=== PATIENT | female | born 2000 | race Caucasian/White ===

== ENCOUNTER 2020-11-19 09:40 | Emergency (ER) | payer OTHER, SELFPAY ==
--- NOTE | ~2020-11-19 | XR_ITS ---
EXAMINATION: XR chest 2V DATE: 11/19/2020 10:12 INDICATION: One week of cough TECHNIQUE: PA and lateral views of the chest were obtained. COMPARISON: None FINDINGS: The lungs are clear with no focal airspace opacities, pulmonary edema, pleural effusion or pneumothor ax. The cardiomediastinal silhouette is normal. 8 degrees lower thoracic levocurvature. IMPRESSION: 1. No acute cardiopulmonary disease. Reviewed, dictated and finalized at location A.
[2020-11-19 09:53] VITALS: BP 107/67; PULSE 112; RESP 16; TEMP 36.8; O2SAT 99
--- NOTE | 2020-11-19 10:07 | ED.URI ---
HPI - URI/Sore Throat General Chief Complaint: Upper Respiratory Infection Stated Complaint: Cough,Runny Nose Time Seen by Provider: 11/19/20 10:00 Source: patient and RN notes reviewed Mode of arrival: ambulatory Limitations: no limitations History of Present Illness HPI Narrative: 20 year old female who presents to [facility] care with 1 1/2 week duration of cough, nasal congestion and drainage of yellowish mucous.Patient does have history of Crohns has had colectomy with ileostomy and is on Humira for management of disease process. Patient states that she has been taking an allergy pill with no improvement in her symptoms. Patient states that she has sinus pressure under her eyes and feels pressure in her head. Patient denies any productive cough or any shortness of breath, SAO2 99% on room air. Patient has had negative COVID test recently and also has had COVID immunizations one in July and one in August. MD elicited complaint: cough, rhinorrhea, nasal congestion and sinus pain Pertinent past history: immunosuppression Onset (ago): week(s) (1 1/2) Consistency: progressively worsening Description of mucous: yellow Able to tolerate fluids by mouth: Yes Exacerbating factors: nothing Relieving factors: nothing Associated symptoms: rhinorrhea, nasal congestion, cough and other (sinus pain) Treatments prior to arrival: other (allergy pill) Related Data Home Medications Medication Instructions Recorded Confirmed Humira 11/19/20 Allergies Allergy/AdvReac Type Severity Reaction Status Date / Time No Known Allergies Allergy Verified 11/19/20 09:59 Review of Systems Review of Systems: Narrative: CONSTITUTIONAL: Denies fever, chills, or sweats. EYES: Denies visual changes, redness, or discharge. ENT: Positive rhinorrhea, congestion, facial pressure, no sore throat, or otalgia. CARDIOVASCULAR: Denies chest pain, palpitations, or edema. RESPIRATORY: Positive cough denies dyspnea. GASTROINTESTINAL: Denies abdominal pain, nausea, vomiting, or diarrhea. GENITOURINARY: Denies dysuria or hematuria. SKIN: Denies rash or itching. MUSCULOSKELETAL: Denies back pain, joint pain, or myalgia. NEUROLOGIC: Denies headache, numbness, or weakness. PSYCHIATRIC: Denies anxiety or depression. All systems reviewed & are unremarkable except as noted in HPI and below PMFSH Past Medical History Medical History (Updated 11/20/20 @ 11:50 by Hayley Douglas NP) Acute Crohn's disease Surgical History Surgical History (Updated 11/19/20 @ 10:31 by Hayley Douglas NP) History of total colectomy ileostomy Family History Family History (Updated 11/20/20 @ 11:34 by Hayley Douglas NP) Grandparent Breast cancer Cancer of kidney Acute myocardial infarction Heart disease Other Carcinoma of colon Colon polyp Social History Social History (Updated 11/19/20 @ 10:32 by Hayley Douglas NP) Smoking status: Never smoker Substance use: never Living arrangements: with family Occupation/Education: student Gender identity (if verbalized by the patient): Female Comments At time of signature, agree with nursing past medical, surgical, social and family history. There is no relevant family history pertinent to the presenting complaint Exam Narrative: Exam Narrative: GENERAL: Well-appearing, well-nourished, and in no acute distress. HEAD: Normocephalic, atraumatic. EYES: PERRLA and EOMI ENT: Nares red and swollen with yellow rhinorrhea no epistaxis. Mucous membranes moist, sinus pressure under eyes and head pressure, TM's normal with good light reflex no drinage, throat red with no lesions or exudates or enlarged tonsils uvula midline, post nasal drainage noted to back of throat NECK: Supple.no lymphadenopathy CHEST: Clear to auscultation. No respiratory distress.SAO2 99% on room air. HEART: Regular rate and rhythm. No murmur heard. Normal peripheral pulses. ABDOMEN: Soft, nontender, nondistended, normal active bowel meenu
== END 2020-11-19 10:37 | disposition home or self-care (01) ==
PROVIDERS: Emergency Provider Registered Nurse
DX: J01.40 Acute pansinusitis, unspecified (principal); K50.90 Crohn's disease, unspecified, without complications
CPT/HCPCS: 71046; 99203; G0463